=== PATIENT | female | born 1970 | race Caucasian/White ===

== ENCOUNTER 2016-08-30 09:29 | Outpatient (CLI) | payer OTHER | END 2016-08-30 19:18 | disposition home or self-care (01) | LOC: SMI 09:29 | PROVIDERS: ATTEND Family Medicine | DX: L92.8 Other granulomatous disorders of the skin and subcutaneous tissue (principal); M19.072 Primary osteoarthritis, left ankle and foot; R22.42 Localized swelling, mass and lump, left lower limb | CPT/HCPCS: 73720 ==

== ENCOUNTER 2016-10-29 11:47 | Outpatient (CLI) | payer OTHER | END 2016-10-29 19:41 | disposition home or self-care (01) | LOC: SMI 11:47 | DX: M79.672 Pain in left foot (principal) | CPT/HCPCS: 73720 ==

== ENCOUNTER 2018-05-06 08:24 | Outpatient (CLI) | payer OTHER | END 2018-05-06 19:15 | disposition home or self-care (01) | LOC: SMA 08:24 | PROVIDERS: ATTEND Family Medicine | DX: R92.8 Other abnormal and inconclusive findings on diagnostic imaging of breast (principal); Z80.3 Family history of malignant neoplasm of breast | CPT/HCPCS: 76641; 77066 ==

== ENCOUNTER 2019-02-11 12:55 | Outpatient (CLI) | payer OTHER | END 2019-02-11 20:46 | disposition home or self-care (01) | LOC: SRD 12:55 | PROVIDERS: ATTEND Family Medicine | DX: J18.9 Pneumonia, unspecified organism (principal) | CPT/HCPCS: 71046-TC ==

== ENCOUNTER 2019-04-06 11:52 | Emergency (ER) | payer OTHER ==
[~2019-04-06] VITALS: Ht 160 cm; Wt 68.0 kg
[2019-04-06 11:52] VITALS: BP_SYST 124
--- NOTE | 2019-04-06 11:52 | NUR ---
BROUGHT BACK TO BED #4 AND TRIAGED. REPORT GIVEN TO LISA
--- NOTE | 2019-04-06 11:53 | NUR ---
Pt brought by self, A&Ox4, pt presents to ER with urinary pain/burning,skin pink and warm, cap refill <3, VSS.
--- NOTE | 2019-04-06 12:10 | NUR ---
Dr Lazaro at bedside examining patient
--- NOTE | 2019-04-06 12:26 | NUR ---
Patient given written and verbal discharge instructions and verbalizes understanding. ER MD discussed with patient the results and treatment provided. Patient in stable condition. ID arm band removed. Rx of Cipro given. Patient educated on pain management and to follow up with PMD. Pain Scale 2/10 . Opportunity for questions provided and answered. Medication side effect fact sheet provided.
== END 2019-04-06 12:27 | disposition home or self-care (01) ==
LOC: SED 11:52
DX: N39.0 Urinary tract infection, site not specified (principal); Z88.1 Allergy status to other antibiotic agents
CPT/HCPCS: 81002; 99283